=== PATIENT | male | born 1970 | race Caucasian/White ===

== ENCOUNTER 2019-08-11 12:24 | Emergency (ER) | payer MEDICAID, OTHER ==
[~2019-08-11] VITALS: Ht 72 cm; Wt 122.4 kg
[2019-08-11] MEDS ORDERED: KETOROLAC 60 MG/2 ML VIAL IM STA (13:24)
--- NOTE | 2019-08-11 13:33 | ED Lower Extremity ---
General Chief Complaint: Lower Extremity Stated Complaint: LEG SWELLING;PAIN Nursing Triage Note: rt foot pain/swelling. noninjury. Nursing Sepsis Screen: No Definite Risk Source: patient Exam Limitations: no limitations History of Present Illness Date Seen by Provider: Aug 11, 2019 Time Seen by Provider: 13:20 Initial Comments Here with report of right foot pain on the lateral aspect. Denies any recent injury although has been doing quite a bit of walking recently. He was concerned it might be gout so has changed his diet. He has not taken anything for the pain. Does not have history of gout previously. Onset: last week Severity: moderate Pain/Injury Location: right foot Method of Injury: unknown Modifying Factors: Improves With Immobilization; Worse With Movement Allergies and Home Medications Allergies Coded Allergies: No Known Drug Allergies (Unverified , 08/11/19) Patient Home Medication List Home Medication List Reviewed: Yes Review of Systems Constitutional: no symptoms reported Respiratory: no symptoms reported Cardiovascular: no symptoms reported Musculoskeletal: see HPI, joint pain, joint swelling Past Zcrwthb-Vxeomb-Lqhuum Hx Past Med/Social Hx: Reviewed Nursing Past Med/Soc Hx Patient Social History Alcohol Use: Denies Use Recreational Drug Use: No Smoking Status: Never a Smoker Recent Foreign Travel: No Contact w/Someone Who Travel: No Recent Infectious Disease Expo: No Past Medical History Surgeries: No Respiratory: No Cardiac: No Neurological: No Gastrointestinal: No Family Medical History Reviewed Nursing Family Hx Physical Exam Vital Signs Vital Signs - First Documented 08/11/19 13:06 Temp 37.4 Pulse 80 Resp 18 B/P (MAP) 160/109 (126) Pulse Ox 97 O2 Delivery Room Air Capillary Refill : Less Than 3 Seconds Height, Weight, BMI Height: '" Weight: lbs. oz. kg; 236.00 BMI Method: General Appearance: WD/WN, no apparent distress Cardiovascular: regular rate, rhythm, no murmur Respiratory: lungs clear, normal breath sounds Feet: right foot pain, right foot soft tissue tenderness, right foot swelling, right foot other (pain to the lateral aspect near the base of the fifth metatarsal and to the volar aspect under the fourth and fifth metatarsal at their base. Mild redness in that area. Does have pain with range of motion of the fifth digit. No obvious wounds or other findings of infection) Neurologic/Psychiatric: alert, oriented x 3 Skin: warm/dry, other (skin findings as above) Progress/Results/Core Measures Results/Orders My Orders Orders - JULIO CARVAJAL MD Ketorolac Injection (Toradol Injection) (08/11/19 13:24) Foot, Right, 3 View (08/11/19 13:24) Vital Signs/I&O 08/11/19 13:06 Temp 37.4 Pulse 80 Resp 18 B/P (MAP) 160/109 (126) Pulse Ox 97 O2 Delivery Room Air Blood Pressure Mean: 126 Progress Progress Note : Progress Note Seen and evaluated. X-ray right foot. Toradol 60 mg IM. Monitor patient. 1356: No acute fractures. Discharged home with return precautions. Patient verbalized understanding instructions and agreement with plan. Dates his pain is getting a little better after Toradol. Diagnostic Imaging Diagonstic Imaging: Xray Plain Films/CT/US/NM/MRI: other Comments [facility] [place], [place] NAME: ANSHUL [facility] REC#: [id number] PT STATUS: REG ER : 1970 PHYSICIAN: JULIO CARVAJAL MD ADMIT DATE: 08/11/19/ER Draft Date of Exam:08/11/19 FOOT, RIGHT, 3 VIEW INDICATION: Right foot pain. COMPARISON: None. FINDINGS: Three views of the right foot demonstrate no acute fracture or dislocation. There are no focal osseous lesions. There is no soft tissue swelling. Joint spaces are well maintained. No radiopaque foreign bodies are seen. IMPRESSION: No acute fractures or dislocations of the right foot. Dictated on workstation # [id number] Dict: 08/11/19 1345 Trans: 08/11/19 1347 [id number] Interpreted by: ALEX WEIR MD Electronically signed by: Departure Impression Primary Impression: Gout of right foot Qualified Codes: M10.9 - Gout, unspecified Disposition: 01 HOME, SELF-CARE Condition: Stable Departure-Patient Inst. Decision time for Depature: 13:57 Ref[place]: [facility] [place]ructions: Gout Add. Discharge Instructions: All discharge instructions reviewed with patient and/or family. Voiced understanding. Take medications as directed. Drink plenty of fluids. Follow-up with your DrSaúl in a few days for recheck. Return for worse pain, fever, vomiting, weakness, breathing problems or other concerns as needed. Scripts Naproxen (Naprosyn) 500 Mg Tablet 500 MG PO BID, #30 TAB 0 Refills Prov: JULIO CARVAJAL MD 08/11/19 Colchicine (Colchicine) 0.6 Mg Tablet 0.6 MG PO UD, #2 TAB 0 Refills Take 1 tablet now and repeat dose in one hour Prov: JULIO CARVAJAL MD 08/11/19 JULIO CARVAJAL MD Aug 11, 2019 13:33
--- NOTE | 2019-08-11 13:47 | Diagnostic Imaging Report ---
INDICATION: Right foot pain. COMPARISON: None. FINDINGS: Three views of the right foot demonstrate no acute fracture or dislocation. There are no focal osseous lesions. There is no soft tissue swelling. Joint spaces are well maintained. No radiopaque foreign bodies are seen. IMPRESSION: No acute fractures or dislocations of the right foot. Dictated by: Dictated on workstation # [id number]
[2019-08-11] MEDS ORDERED: NAPR-1071 PO (13:59)
[2019-08-11] MEDS ORDERED: COLC0.6T56 PO (13:59)
[2019-08-11 14:15] VITALS: BP 152/90
== END 2019-08-11 14:20 | disposition home or self-care (01) ==
LOC: ER 12:26
DX: M10.9 Gout, unspecified (principal)
CPT/HCPCS: 73630